=== PATIENT | male | born 1995 | race Caucasian/White ===

== ENCOUNTER 2021-07-13 21:09 | Emergency (ER) | payer MEDICAID ==
[~2021-07-13] VITALS: Ht 180.3 cm; Wt 62.0 kg
[2021-07-13 23:26] LABS: BASOPHILS # (AUTO) 0.1 X10'3 (0-0.2); BASOPHILS % (AUTO) 1.1 % (0-1); EOSINOPHILS # (AUTO) 0.1 X10'3 (0-0.9); EOSINOPHILS % (AUTO) 1.4 % (0-6); HEMATOCRIT 35.6 % (42.0-52.0); HEMOGLOBIN 12.3 g/dl (14.0-17.9); LYMPHOCYTES # (AUTO) 2.5 X10'3 (1.1-4.8); LYMPHOCYTES % (AUTO) 27.5 % (21-51); MEAN CORPUSCULAR HEMOGLOBIN 28.7 PG (27.0-31.0); MEAN CORPUSCULAR HGB CONC 34.5 g/dL (33.0-36.5); MEAN PLATELET VOLUME 8.8 FL (7.4-10.4); MONOCYTES # (AUTO) 0.6 X10'3 (0-0.9); MONOCYTES % (AUTO) 7.2 % (2-12); NEUTROPHILS # (AUTO) 5.6 X10'3 (1.8-7.7); NEUTROPHILS % (AUTO) 62.8 % (42-75); PLATELET COUNT 313 X10'3 (140-440); RED BLOOD COUNT 4.28 X10'6 (4.70-6.10); RED CELL DISTRIBUTION WIDTH 13.6 % (11.5-14.5); WHITE BLOOD COUNT 8.9 X10'3 (4.5-11.0)
[2021-07-13 23:32] LABS: ALBUMIN 3.6 G/DL (3.4-5.0); ANION GAP 8 (8-16); BLOOD UREA NITROGEN 21 MG/DL (7-18); BUN/CREATININE RATIO 24.4 (5.4-32.0); CALCIUM 8.5 MG/DL (8.5-10.1); CHLORIDE 107 MMOL/L (99-107); CREATININE 0.86 MG/DL (0.60-1.10); GLUCOSE 87 MG/DL (70-104); POTASSIUM 4.5 MMOL/L (3.5-5.1); SODIUM 141 MMOL/L (135-145); TOTAL CARBON DIOXIDE 25.8 MMOL/L (24-32); eGFR > 90 ML/MIN
--- NOTE | 2021-07-14 00:27 | NUR ---
R 2nd finer between 2nd and 3rd segments he has an triangular open area with yellow drainage. B feet are red, swollen, and foul smelling. Feet and hands cleaned. Addendum: 07/14/21 at 0030 by KAILEY B feet are also very painful to touch.
[2021-07-14] MEDS ORDERED: CLIN300C71 PO (00:47)
--- NOTE | 2021-07-14 00:52 | NUR ---
Rx for cellulitis is printed and ready to give to the patient upon discharge. Rx placed on chart.
--- NOTE | 2021-07-14 01:15 | NUR ---
Patient brought to bed 26 via w/c, accompanied by PCT. He got in bed, and is now asleep.
[2021-07-14] MEDS ORDERED: normal saline 1000ml 1,000 ML IV ONE (01:20)
--- NOTE | 2021-07-14 02:31 | NUR ---
PATIENT'S PACKET WAS SENT TO [facility].
--- NOTE | 2021-07-14 03:24 | NUR ---
Patient awake and up to use bathroom. Denies needs.
[2021-07-14 03:54] LABS: URINE AMPHETAMINE SCREEN POSITIVE (Neg); URINE BARBITUATE SCREEN NEGATIVE (Neg); URINE BENZODIAZEPINES SCREEN NEGATIVE (Neg); URINE CANNABINOID SCREEN POSITIVE (Neg); URINE COCAINE SCREEN NEGATIVE (Neg); URINE METHADONE SCREEN NEGATIVE (Neg); URINE OPIATE SCREEN NEGATIVE (Neg); URINE PHENCYCLIDINE SCREEN NEGATIVE (Neg)
--- NOTE | 2021-07-14 05:07 | NUR ---
Patient sleeping on on right side. RR even and unlabored. No s/sx of distress.
[2021-07-14 06:00] VITALS: BP 116/68
[2021-07-14] MEDS ORDERED: clindamycin 150mg capsule PO ONE (08:00)
--- NOTE | 2021-07-14 08:00 | NUR ---
PATIENT RECEIVED SLEEPING SUPINE IN BED. HE WAS AWOKEN TO EAT BREKFAST THIS MORNING AND WAS GIVEN SCHEDULED ANTIBIOTIC WITH NO COMPLAINTS. 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 PATIENT HAS NO PLAN FOR SELF-HARM AT THIS TIME. HE NOTED TO BE POLITE AND RESPECTFUL TOWARD STAFF. NO COMPLAINTS OR S/S OF DISTRESS. WILL CONTINUE TO MONITOR.
[2021-07-14 08:45] LABS: ALANINE AMINOTRANSFERASE 63 U/L (12-78); ALBUMIN/GLOBULIN RATIO 0.9 (1.1-1.5); ALKALINE PHOSPHATASE 110 IU/L (46-116); ANION GAP 7 (8-16); ASPARTATE AMINO TRANSFERASE 37 U/L (10-37); BILIRUBIN,TOTAL 0.3 MG/DL (0.1-1.0); BLOOD UREA NITROGEN 20 MG/DL (7-18); BUN/CREATININE RATIO 28.2 (5.4-32.0); CALCIUM 7.9 MG/DL (8.5-10.1); CHLORIDE 109 MMOL/L (99-107); CREATININE 0.71 MG/DL (0.60-1.10); ETHANOL < 0.010 GM/DL (0.0-0.010); GLUCOSE 95 MG/DL (70-104); POTASSIUM 4.5 MMOL/L (3.5-5.1); SODIUM 142 MMOL/L (135-145); TOTAL CARBON DIOXIDE 25.6 MMOL/L (24-32); TOTAL PROTEIN 6.3 G/DL (6.4-8.2); eGFR > 90 ML/MIN
--- NOTE | 2021-07-14 09:36 | NUR ---
[facility] PARING MACHINE OPERATOR TALKING TO PATIENT AT THIS TIME.
[2021-07-14] MEDS ORDERED: ibuprofen tablet 400 MG TABLET PO ONE (10:00)
== END 2021-07-14 10:20 ==
LOC: ER 21:11
DX: R44.0 Auditory hallucinations (principal); Z20.822 Contact with and (suspected) exposure to COVID-19; F15.10 Other stimulant abuse, uncomplicated; M79.641 Pain in right hand; F19.90 Other psychoactive substance use, unspecified, uncomplicated; Z98.890 Other specified postprocedural states; Z59.00 Homelessness unspecified; Z79.2 Long term (current) use of antibiotics
CPT/HCPCS: 36415; 80048; 80053; 80305; 80320; 83605; 85025; 87635; 96360; 96361; 99285; C9803; J7030

== ENCOUNTER 2021-09-12 10:56 | Emergency (ER) | payer MEDICAID ==
[~2021-09-12] VITALS: Ht 180.3 cm; Wt 63.6 kg
[2021-09-12 11:11] VITALS: BP 125/89
== END 2021-09-12 11:29 ==
LOC: ER 10:57
DX: S20.411A Abrasion of right back wall of thorax, initial encounter (principal); F15.10 Other stimulant abuse, uncomplicated; Z59.00 Homelessness unspecified; Y08.89XA Assault by other specified means, initial encounter; Y93.89 Activity, other specified; Y92.89 Other specified places as the place of occurrence of the external cause; Y99.8 Other external cause status
CPT/HCPCS: 99283

== ENCOUNTER 2021-11-19 05:03 | Emergency (ER) | payer MEDICAID ==
[~2021-11-19] VITALS: Ht 182.9 cm; Wt 75.9 kg
[2021-11-19] MEDS ORDERED: ondansetron/PF 4mg/2ml inj IV ONE (05:10)
[2021-11-19 05:59] LABS: BASOPHILS % (AUTO) 0.4 % (0-1); EOSINOPHILS # (AUTO) 0.1 X10'3 (0-0.9); EOSINOPHILS % (AUTO) 1.8 % (0-6); HEMATOCRIT 33.3 % (42.0-52.0); HEMOGLOBIN 11.2 g/dl (14.0-17.9); LYMPHOCYTES # (AUTO) 1.3 X10'3 (1.1-4.8); LYMPHOCYTES % (AUTO) 21.3 % (21-51); MEAN CORPUSCULAR HEMOGLOBIN 27.5 PG (27.0-31.0); MEAN CORPUSCULAR HGB CONC 33.7 g/dL (33.0-36.5); MEAN CORPUSCULAR VOLUME 81.6 FL (78-98); MONOCYTES # (AUTO) 0.4 X10'3 (0-0.9); MONOCYTES % (AUTO) 6.9 % (2-12); NEUTROPHILS # (AUTO) 4.3 X10'3 (1.8-7.7); NEUTROPHILS % (AUTO) 69.6 % (42-75); PLATELET COUNT 255 X10'3 (140-440); RED BLOOD COUNT 4.08 X10'6 (4.70-6.10); RED CELL DISTRIBUTION WIDTH 13.6 % (11.5-14.5); WHITE BLOOD COUNT 6.2 X10'3 (4.5-11.0)
[2021-11-19 06:11] LABS: ALANINE AMINOTRANSFERASE 53 U/L (12-78); ALKALINE PHOSPHATASE 68 IU/L (46-116); ANION GAP 10 (8-16); ASPARTATE AMINO TRANSFERASE 56 U/L (10-37); BILIRUBIN,TOTAL 0.5 MG/DL (0.1-1.0); BLOOD UREA NITROGEN 14 MG/DL (7-18); BUN/CREATININE RATIO 11.2 (5.4-32.0); CALCIUM 7.4 MG/DL (8.5-10.1); CHLORIDE 103 MMOL/L (99-107); CREATINE KINASE 233 U/L (39-308); CREATININE 1.25 MG/DL (0.60-1.10); GLUCOSE 233 MG/DL (70-104); SODIUM 138 MMOL/L (135-145); TOTAL CARBON DIOXIDE 24.9 MMOL/L (24-32); eGFR 70 ML/MIN
[2021-11-19 06:18] LABS: POTASSIUM 2.8 MMOL/L (3.5-5.1)
[2021-11-19] MEDS ORDERED: potassium Cl 20 mEq SR tablet PO STA ×2 (06:20→08:14)
--- NOTE | 2021-11-19 06:37 | NUR ---
RELIEVING RN FOR BREAK, PT IS SLEEPING, RESP EVEN AND UNLABORED, EYES OPEN TO VOICE, NOT FOLLOWING COMMANDS, DIFFICULT TO UNDERSTAND, PT UNABLE TO TAKE PO MED, PROVIDER AWARE
--- NOTE | 2021-11-19 06:47 | NUR ---
DR XAVIER GAVE VERBAL ORDER TO GIVE POTASSIUM PO WHEN PT IS AWAKE, WILL HOLD PO MED FOR NOW
[2021-11-19 08:26] VITALS: BP 99/66
[2021-11-19] MEDS ORDERED: naloxone 2mg/2ml inj IV STA (08:35)
[2021-11-19] MEDS ORDERED: normal saline 1000ml 1,000 ML IV ONE (08:35)
== END 2021-11-19 10:16 | disposition home or self-care (01) ==
LOC: MERGE 05:05 → ER 05:05 → EDBD 05:05 → ER 10:16
DX: T65.291A Toxic effect of other tobacco and nicotine, accidental (unintentional), initial encounter (principal); R41.82 Altered mental status, unspecified; Y92.89 Other specified places as the place of occurrence of the external cause
CPT/HCPCS: 36415; 70450; 71045; 80053; 82550; 85025; 96361; 96374; 96375; 99284; J2310; J2405; J7030

== ENCOUNTER 2022-09-30 19:03 | Emergency (ER) | payer MEDICAID ==
[~2022-09-30] VITALS: Ht 175.3 cm; Wt 75.0 kg
[2022-09-30] MEDS ORDERED: bacitracin 15gm ointment TP ONE (19:30)
[2022-09-30] MEDS ORDERED: LIDOCAINE 2%/EPI 1:100,000 inj. Multi-dose 20 ML VIAL IJ ONE (19:30)
[2022-09-30 19:31] VITALS: BP 115/82
== END 2022-09-30 20:29 | disposition home or self-care (01) ==
LOC: ER 19:04
DX: S01.81XA Laceration without foreign body of other part of head, initial encounter (principal); F15.90 Other stimulant use, unspecified, uncomplicated; Z59.00 Homelessness unspecified; Z79.899 Other long term (current) drug therapy; X58.XXXA Exposure to other specified factors, initial encounter; Y93.89 Activity, other specified; Y92.89 Other specified places as the place of occurrence of the external cause; Y99.8 Other external cause status
CPT/HCPCS: 12013; 99283; A6449

== ENCOUNTER 2022-11-04 19:22 | Emergency (ER) | payer MEDICAID ==
[~2022-11-04] VITALS: Ht 180.3 cm; Wt 72.7 kg
[2022-11-04 19:26] VITALS: BP 122/96
--- NOTE | 2022-11-04 20:27 | NUR ---
PA AT BEDSIDE IRRIGATING WOUND AND APPLYING DERMABOND AND PATIENT WILL BE MEDICALLY CLEARED FOR INCARCERATION
== END 2022-11-04 20:49 | disposition home or self-care (01) ==
LOC: ER 19:22
DX: S01.81XA Laceration without foreign body of other part of head, initial encounter (principal); X58.XXXA Exposure to other specified factors, initial encounter; Y93.89 Activity, other specified; Y92.89 Other specified places as the place of occurrence of the external cause; Y99.8 Other external cause status
CPT/HCPCS: 12001; 12011; 99283